=== PATIENT | female | born 1990 | race Caucasian/White ===

== ENCOUNTER 2017-01-26 13:38 | Emergency (ER) | payer SELFPAY ==
--- NOTE | 2017-01-26 14:10 | EDM.PDOC ---
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 Past medical history: As per history of present illness and as reviewed below otherwise noncontributory. Surgical history: As per history of present illness and as reviewed below otherwise noncontributory. Social history: No reported history of drug or alcohol abuse. Family history: As per history of present illness and as reviewed below otherwise noncontributory. Physical exam: HEENT: Atraumatic, normocephalic, pupils reactive, negative for conjunctival pallor or scleral icterus, mucous membranes moist, throat clear, neck supple, nontender, trachea midline. Lungs: Clear to auscultation, breath sounds equal bilaterally, chest nontender. Heart: S1S2, regular, negative for clicks, rubs, or JVD. Abdomen: Soft, nondistended, nontender. Negative for masses or hepatosplenomegaly. Negative for costovertebral tenderness. Pelvis: Stable nontender. Genitourinary: Deferred. Rectal: Deferred. Extremities: Atraumatic, negative for cords or calf pain. Neurovascular unremarkable. Neuro: Awake, alert, oriented. Cranial nerves II through XII unremarkable. Cerebellum unremarkable. Motor and sensory unremarkable throughout. Exam nonfocal. Diagnostics: CBC CMP quantitative beta pelvic ultrasound ABO Rh Therapeutics: None Impression: #1 First trimester bleeding Definitive disposition and diagnosis as appropriate pending reevaluation and review of above. abdomen Pain Score (Numeric/FACES): 5 - Related Data Allergies Allergy/AdvReac Type Severity Reaction Status Date / Time No Known Allergies Allergy Verified 01/26/17 13:41 Home Meds: Home Meds . 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 ED EXAM, GENERAL - Physical Exam Exam: See Below (C dictating) Course - Vital Signs Last Recorded V/S: Last Vital Signs Temp 36.1 C 01/26/17 13:48 Pulse 66 01/26/17 13:48 Resp 16 01/26/17 13:48 BP 118/67 01/26/17 13:48 Pulse Ox 99 01/26/17 13:48 - Orders/Labs/Meds Orders: Active Orders 24 hr Category Date Time Status OB 1st Tri Sgl 1st Gest [US] Stat Exams 01/26/17 13:56 Taken COMPREHENSIVE METABOLIC PN,CMP [CHEM] Stat Lab 01/26/17 14:04 Results HCG QUANTITATIVE,SERUM [CHEM] Stat Lab 01/26/17 14:04 Results Labs: Laboratory Tests 01/26/17 01/26/17 01/26/17 Range/Units 14:04 14:04 14:04 WBC 6.08 (4.0-11.0) K/uL RBC 4.28 L (4.30-5.90) M/uL Hgb 12.8 (12.0-16.0) g/dL Hct 37.0 (36.0-46.0) % MCV 86.4 (80.0-98.0) fL MCH 29.9 (27.0-32.0) pg MCHC 34.6 (31.0-37.0) g/dL RDW Std Deviation 42.0 (28.0-62.0) fl RDW Coeff of Lizett 13 (11.0-15.0) % Plt Count 137 L (150-400) K/uL MPV 11.80 (7.40-12.00) fL Neut % (Auto) 59.5 (48.0-80.0) % Lymph % (Auto) 28.0 (16.0-40.0) % [place] % (Auto) 11.5 (0.0-15.0) % Eos % (Auto) 0.8 (0.0-7.0) % Baso % (Auto) 0.2 (0.0-1.5) % Neut # (Auto) 3.6 (1.4-5.7) K/uL Lymph # (Auto) 1.7 (0.6-2.4) K/uL [place] # (Auto) 0.7 (0.0-0.8) K/uL Eos # (Auto) 0.1 (0.0-0.7) K/uL Baso # (Auto) 0.0 (0.0-0.1) K/uL Nucleated RBC % 0.0 /100WBC Nucleated RBCs # 0 K/uL Sodium 138 (136-146) mmol/L Potassium 3.9 (3.5-5.1) mmol/L Chloride 106 (98-110) mmol/L Carbon Dioxide 26 (21-31) mmol/L BUN 6 (6.0-23.0) mg/dL Creatinine 0.6 (0.6-1.5) mg/dL Est Cr Clr Drug Dosing 117.54 mL/min Estimated GFR (MDRD) > 60.0 ml/min Glucose 75 (60-110) mg/dL Calcium 8.6 L (8.8-10.8) mg/dL Total Bilirubin 0.3 (0.1-1.5) mg/dL AST 14 (5-40) IU/L ALT 15 (8-54) IU/L Alkaline Phosphatase 49 (40-150) Total Protein 6.5 (6.0-8.0) g/dL Albumin 3.8 (3.5-5.0) g/dL Globulin 2.7 (2.0-3.5) g/dL Albumin/Globulin Ratio 1.4 (1.3-2.8) Blood Type B POSITIVE Departure - Departure Time of Disposition: 15:07 Disposition: Home, Self-Care 01 Condition: Good Clinical Impression: Threatened - Discharge Information Forms: ED Department Discharge Additional Instructions: The following information is given to patients seen in the emergency department who are being discharged to home. This information is to outline your options for follow-up care. We provide all patients seen in our emergency department with a follow-up referral. The need for follow-up, as well as the timing and circumstances, are variable depending upon the specifics of your emergency department visit. If you don't have a primary care physician on staff, we will provide you with a referral. We always advise you to contact your personal physician following an emergency department visit to inform them of the circumstance of the visit and for follow-up with them and/or the need for any referrals to a consulting specialist. The emergency department will also refer you to a specialist when appropriate. This referral assures that you have the opportunity for followup care with a specialist. All of these measure are taken in an effort to provide you with optimal care, which includes your followup. Under all circumstances we always encourage you to contact your private physician who remains a resource for coordinating your care. When calling for followup care, please make the office aware that this follow-up is from your recent emergency room visit. If for any reason you are refused follow-up, please contact the [facility] emergency department at and asked to speak to the emergency department charge nurse. 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
[2017-01-26 14:40] LABS: CHLORIDE,CL 106 mmol/L (98-110); SODIUM,NA 138 mmol/L (136-146)
--- NOTE | 2017-01-26 15:17 | US ---
EXAMINATION: Transvaginal obstetric ultrasound HISTORY: Bleeding COMPARISON: None TECHNIQUE: Grayscale, color Doppler, and spectral Doppler images obtained transvaginally. FINDINGS: The uterus appears normal in contour and echogenicity. There is an intrauterine gestation noted with a pole and yolk sac. Cardiac activity is noted with a heart rate of 145 bpm. There is a thin hypoechoic crescent involving a less than 25% of the gestational sac. The crown-rump lengt h measures 0.87 cm and the mean gestational sac diameter is 3 cm. This gives an estimated gestationa l age at 7 weeks and 3 days with an estimated date of delivery at 09/11/2017. Both the left and right ovaries appear normal demonstrating normal color and spectral Doppler flow. No adnexal masses or significant free pelvic fluid. IMPRESSION: 1. Single live intrauterine . 2. Probable small subchorionic hemorrhage.
[2017-01-26 15:31] VITALS: BP 108/56
== END 2017-01-26 15:30 | disposition home or self-care (01) ==
LOC: MW.ED 13:38
DX: O20.0 Threatened abortion (principal); Z3A.10 10 weeks gestation of pregnancy
CPT/HCPCS: 36415; 76801; 76801-26; 80053; 84702; 85025; 86900; 86901; 99283; 99284-25